=== PATIENT | female | born 1985 | race Caucasian/White ===

== ENCOUNTER 2016-09-11 14:15 | Emergency (ER) | payer OTHER ==
[2016-09-11 15:17] LABS: BASOPHIL 0.2 % (0-2); EOSINOPHIL 1.7 % (0-5); HGB 14.5 g/dl (12.5-16.0); LYMPHOCYTE 38.3 % (15-48); MCH 31.1 pg (25.0-31.0); MCHC 35.4 g/dL (32.0-36.0); MONOCYTE 5.1 % (0-12); MPV 9.9 fL (6.0-9.5); NEUTROPHIL 54.7 % (41-80); PLT 260 K/uL (150-400); RBC 4.66 M/uL (4.20-5.40); RDW 12.4 % (11.5-14.0); WBC 8.5 K/uL (4.0-10.5)
[2016-09-11 15:25] LABS: BILIRUBIN NEGATIVE (NEGATIVE); BLOOD 3+ Ery/uL (NEGATIVE); CLARITY CLEAR (CLEAR); COLOR YELLOW (YELLOW); GLUCOSE (U) NORMAL (NORMAL); KETONE (U) NEGATIVE (NEGATIVE); LEUKOCYTES NEGATIVE Leu/uL (NEGATIVE); NITRITE NEGATIVE (NEGATIVE); PROTEIN NEGATIVE (NEGATIVE); SPECIFIC GRAVITY <=1.005 (1.001-1.030); UROBILINOGEN 0.2 mg/dL (0.2-1.0)
[2016-09-11 15:29] LABS: CREATININE 0.8 mg/dL (0.5-1.0); POTASSIUM 4.4 mmol/L (3.5-5.1)
[2016-09-11 15:31] LABS: BACTERIA TRACE; URINARY RBC RARE
[2016-09-11 15:35] LABS: AMPHETAMINES NEGATIVE (NEGATIVE); BARBITURATES NEGATIVE (NEGATIVE); BENZODIAZEPINES NEGATIVE (NEGATIVE); COCAINE NEGATIVE (NEGATIVE); MARIJUANA (THC) NEGATIVE (NEGATIVE); METHADONE NEGATIVE (NEGATIVE); TRICYCLIC ANTIDEPRESSANT NEGATIVE (NEGATIVE)
== END 2016-09-11 16:37 | disposition home or self-care (01) ==
LOC: FER 14:15
PROVIDERS: Emergency Medicine
DX: F41.1 Generalized anxiety disorder (principal); F17.210 Nicotine dependence, cigarettes, uncomplicated; F32.9 Major depressive disorder, single episode, unspecified
CPT/HCPCS: 36415; 80048; 80305; 81001; 85025; 85379; 93005

== ENCOUNTER 2021-02-14 14:28 | Emergency (ER) | payer OTHER | END 2021-02-14 14:56 | disposition left against medical advice (07) | LOC: FER 14:28 | DX: Z53.21 Procedure and treatment not carried out due to patient leaving prior to being seen by health care provider (principal) ==